=== PATIENT | male | born 1960 | race Caucasian/White ===

== ENCOUNTER 2018-09-26 03:32 | Emergency (ER) | payer SELFPAY ==
[2018-09-26] MEDS ORDERED: Sodium Chloride 0.9% 1,000 ML IV ONE (03:43)
--- NOTE | 2018-09-26 03:45 | EDM.PDOC ---
ED HPI GENERAL MEDICAL PROBLEM - General Chief Complaint: Lower Extremity Injury/Pain Stated Complaint: SUGAR LEVEL IS HIGH AND FEET HURTS Time Seen by Provider: 09/26/18 03:33 - History of Present Illness INITIAL COMMENTS - FREE TEXT/NARRATIVE: HISTORY AND PHYSICAL: History of present illness: Patient is a 58-year-old male who presents with chief complaint of elevated blood sugar patient is a type II diabetic and is on metformin and Neurontin he states blood sugar was 500 at home. He denies chest pain shortness of breath or other concern Review of systems: As per history of present illness and below otherwise all systems reviewed and negative. Past medical history: As per history of present illness and as reviewed below otherwise noncontributory. Surgical history: As per history of present illness and as reviewed below otherwise noncontributory. Social history: No reported history of drug or alcohol abuse. Family history: As per history of present illness and as reviewed below otherwise noncontributory. Physical exam: HEENT: Atraumatic, normocephalic, pupils reactive, negative for conjunctival pallor or scleral icterus, mucous membranes moist, throat clear, neck supple, nontender, trachea midline. Lungs: Clear to auscultation, breath sounds equal bilaterally, chest nontender. Heart: S1S2, regular, negative for clicks, rubs, or JVD. Abdomen: Soft, nondistended, nontender. Negative for masses or hepatosplenomegaly. Negative for costovertebral tenderness. Pelvis: Stable nontender. Genitourinary: Deferred. Rectal: Deferred. Extremities: Atraumatic, negative for cords or calf pain. Neurovascular unremarkable. Neuro: Awake, alert, oriented. Cranial nerves II through XII unremarkable. Cerebellum unremarkable. Motor and sensory unremarkable throughout. Exam nonfocal. Diagnostics: CBC CMP Therapeutics: Saline 1 L bolus Impression: #1 hyperglycemia secondary to type 2 diabetes Definitive disposition and diagnosis as appropriate pending reevaluation and review of above. - Related Data Allergies Allergy/AdvReac Type Severity Reaction Status Date / Time No Known Allergies Allergy Verified 09/26/18 03:44 Home Meds: Home Meds Gabapentin [Neurontin] 900 cap PO TID 09/26/18 [History] metFORMIN HCl [Metformin HCl] 1 tab PO BID 09/26/18 [History] Review of Systems - Review of Systems Review Of Systems: ROS reveals no pertinent complaints other than HPI. ED EXAM, GENERAL - Physical Exam Exam: See Below (See dictation) Course - Vital Signs Last Recorded V/S: Last Vital Signs Temp 36.4 C 09/26/18 03:32 Pulse 98 09/26/18 03:32 Resp 18 09/26/18 03:32 BP 128/83 09/26/18 03:32 Pulse Ox 97 09/26/18 03:32 - Orders/Labs/Meds Orders: Active Orders 24 hr Category Date Time Status CBC WITH AUTO DIFF [HEME] Stat Lab 09/26/18 03:42 Ordered COMPREHENSIVE METABOLIC PN,CMP [CHEM] Stat Lab 09/26/18 03:43 Ordered Sodium Chloride 0.9% [Normal Saline] 1,000 ml Med 09/26/18 03:43 Active IV STAT Medication Orders Sodium Chloride (Normal Saline) 1,000 mls @ 999 mls/hr IV STAT ONE Stop: 09/26/18 04:43 Meds: Medications Generic Name Dose Route Start Last Admin Trade Name Freq PRN Reason Stop Dose Admin Sodium Chloride 1,000 mls @ 999 mls/hr 09/26/18 03:43 Normal Saline IV 09/26/18 04:43 STAT ONE Departure - Departure Time of Disposition: 03:52 Disposition: Eloped 07 Condition: Good Clinical Impression: Diabetes - Discharge Information Referrals: PCP,None [Primary Care Provider] - Forms: ED Department Discharge - My Orders Last 24 Hours: My Active Orders 09/26/18 03:42 CBC WITH AUTO DIFF [HEME] Stat 09/26/18 03:43 COMPREHENSIVE METABOLIC PN,CMP [CHEM] Stat Sodium Chloride 0.9% [Normal Saline] 1,000 ml IV STAT - Assessment/Plan Last 24 Hours: My Active Orders 09/26/18 03:42 CBC WITH AUTO DIFF [HEME] Stat 09/26/18 03:43 COMPREHENSIVE METABOLIC PN,CMP [CHEM] Stat Sodium Chloride 0.9% [Normal Saline] 1,000 ml IV STAT
== END 2018-09-26 03:55 | disposition left against medical advice (07) ==
LOC: MW.ED 03:32
DX: E11.65 Type 2 diabetes mellitus with hyperglycemia (principal); Z79.84 Long term (current) use of oral hypoglycemic drugs
CPT/HCPCS: 82962; 99283